=== PATIENT | male | born 1975 | race Caucasian/White ===

== ENCOUNTER 2023-05-27 21:11 | Emergency (ER) | payer SELFPAY ==
[~2023-05-27] VITALS: Ht 165.1 cm; Wt 77.0 kg
[2023-05-27 21:18] VITALS: O2SAT 99
[2023-05-27 22:28] VITALS: TEMP 98.3
[2023-05-27] MEDS ORDERED: ACETAMINOPHEN 325MG TABLET PO ONE (22:30)
[2023-05-28 01:07] VITALS: BP 153/106; PULSE 82; RESP 16
== END 2023-05-28 01:09 | disposition home or self-care (01) ==
LOC: ER 21:11
DX: S09.90XA Unspecified injury of head, initial encounter (principal); E11.9 Type 2 diabetes mellitus without complications; I10 Essential (primary) hypertension; Y08.89XA Assault by other specified means, initial encounter; Y93.89 Activity, other specified; Y92.89 Other specified places as the place of occurrence of the external cause; Y99.8 Other external cause status
CPT/HCPCS: 99284